=== PATIENT | male | born 1995 | race African-American/Black ===

== ENCOUNTER 2017-01-31 23:27 | Emergency (ER) | payer SELFPAY ==
[~2017-01-31] VITALS: Ht 195.6 cm; Wt 85.2 kg
[~2017-01-31 23:27] MED LIST: BENTYL20 MG PO; IMODIUM MS REL1 EACH PO; MOTRIN600 MG PO; MOTRIN800 MG PO; PERCOCET 5/31 TABLET PO; SKELAXIN800 MG PO
[2017-01-31] MEDS ORDERED: PREDNISONE20 MG PO (23:55)
[2017-01-31] MEDS ORDERED: INDOCIN50 MG PO (23:55)
[2017-01-31] MEDS ORDERED: PEN-VEE K,VEET500 MG PO (23:55)
[2017-01-31] MEDS ORDERED: LIDOCAINE20 MG/1 M5 PO (23:55)
[2017-02-01 00:14] VITALS: BP 125/83
== END 2017-02-01 00:19 | disposition home or self-care (01) ==
LOC: EME 23:27 → RME 23:27
DX: K02.9 Dental caries, unspecified (principal)
CPT/HCPCS: 99281; 99284; J1885

== ENCOUNTER 2018-04-15 21:16 | Emergency (ER) | payer SELFPAY ==
[~2018-04-15] VITALS: Ht 195.6 cm; Wt 93.7 kg
[~2018-04-15 21:16] MED LIST changes: +INDOCIN50 MG PO; +LIDOCAINE20 MG/1 M5 PO; +PEN-VEE K,VEET500 MG PO; +PREDNISONE20 MG PO
[2018-04-15] MEDS ORDERED: NAPROSYN500 MG PO (22:53)
[2018-04-15 23:04] VITALS: BP 138/85
== END 2018-04-15 23:08 | disposition home or self-care (01) ==
LOC: EME 21:16
DX: M25.512 Pain in left shoulder (principal); M79.641 Pain in right hand; F17.200 Nicotine dependence, unspecified, uncomplicated
CPT/HCPCS: 73030; 73130; 99281; 99283